=== PATIENT | female | born 1955 | race Caucasian/White ===

== ENCOUNTER → 2019-02-11 | Outpatient (CLI) | payer OTHER, MEDICARE | LOC: MRI 10:13 | DX: M51.16 Intervertebral disc disorders with radiculopathy, lumbar region (principal); M12.88 Other specific arthropathies, not elsewhere classified, other specified site; M25.78 Osteophyte, vertebrae; M48.062 Spinal stenosis, lumbar region with neurogenic claudication; M48.07 Spinal stenosis, lumbosacral region ==

== ENCOUNTER → 2019-03-12 | Outpatient (CLI) | payer OTHER, MEDICARE ==
[~2019-03-12] VITALS: Ht 167.6 cm; Wt 69.4 kg
[~2019-03-12] MED LIST: AMITRIPTYLINE H25 M3 PO; CLONAZEPAM 1 MG1 M1 PO; CYANOCOBAL1000 MCG/1 IM; LOMOTIL 2.5-0.01 TAB PO; PROTONIX40 M4 PO; RECLAST 55 MG/1002 IVPB; REMICADE 1100 MG/VIA; ZANAFLEX4 M2 PO; ZOFRAN8 MG PO; ZOLOFT50 M1 PO
[2019-03-12 10:50] VITALS: BP 122/83
--- NOTE | 2019-03-12 11:23 | NUR ---
Pain Clinic Assessment: 1. History of Osteoarthritis: KNEES HANDS FEETS BACK History of Rheumatoid Arthritis: Not Applicable 2. Height: 5 ft. 6 in. 167.6 cm. Weight: 153.0 lb. oz. 69.400 kg. Patient's BMI: 24.7 3. Vital Signs: BP: 122/83 Pulse: 89 Resp: 16 Temp: 02 Sat: 98 ECG Mon: 4. Pain Intensity: 6-7 5. Fall Risk: Dizziness: Y Needs help standing or walking: N Fallen in the last 3 months: N Fall risk comments: 6. Patient on Blood Thinner: None 7. History of Hypertension: Y 8. Opioid Therapy greater than 6 weeks: N Opiate Contract Signed: 9. Risk Assessment Tool Provided: LOW RISK 04/19 10. Functional Assessment Tool: 11. Recreational Drug Use: Never Drug Type: Tobacco Use: Current Every Day Smoker Tobacco Type: Cigarettes Amount or Packs/day: 1/2 PACK How Many Years: 30 Alcohol Use: No Frequency: Quant:
--- NOTE | 2019-03-13 08:46 | HPC ---
[facility] [address] [place] [address] PAIN MANAGEMENT CONSULTATION Name: NESTORTERESA D [facility] [id number] Admission: 03/12/19 Attend Phys: Luis Thomas DO Discharge: Date of : 55 Report #: [id number] THIS REPORT FOR: //name// CC: Luis Jimenez MD DATE OF SERVICE: 03/12/2019 CHIEF COMPLAINT: Axial back pain. HISTORY OF PRESENT ILLNESS: As you know, the patient is a 64-year-old female with longstanding history of axial back pain began 11/15/2018. The patient reports no injury or trauma that may have led to symptom occurrence. She sought evaluation through her primary care physician who ultimately sent the patient to Rheumatology. The patient was advised that treatment options are limited from her route supervisor. Apparently, there was question about the use of Lyrica and the patient was advised this was not a suitable agent for her symptoms. She was subsequently referred for MRI, which shows some mild changes at the lower lumbar levels and moderate changes in the upper lumbar levels, the changes significant enough that the patient was referred to our clinic to discuss the possibility of treatment options for low back and bilateral upper buttock pain. The patient indicates day pain is continuous. Describes the pain as shooting and sharp. She places current pain score 1/10, daily average 2/10, worst pain has been is 10/10. The patient states that movement exacerbates symptoms, nothing but heat has improved pain. The patient states that she has been on opioids in the past being provided through her lab courier for her Crohn's issues, but she is either being weaned from those medications or has discontinued the medications, as the story has changed during our evaluation today. She has been referred to our service to discuss treatment options for suspected lumbar radiculopathy. PAST MEDICAL HISTORY: 1. Crohn's disease. 2. Hypertension. 3. Chronic liver disease. 4. Hepatitis. 5. Chronic kidney disease with renal cell carcinoma. 6. Emotional problems. 7. Degenerative joint disease. 8. Osteoarthritis. PAST SURGICAL HISTORY: 1. section. 2. Hysterectomy. [facility] [address] [place] [address] PAIN MANAGEMENT CONSULTATION Name: TERESA BAEZ Room #: REG [facility].#: [id number] Admission: 03/12/19 Attend Phys: Luis Thomas DO Discharge: Date of : 55 Report #: [id number] 3. Right wrist fracture open reduction and internal fixation. 4. Bowel resection in 2009. 5. Cryoablation of the left kidney, 02/2019. SOCIAL HISTORY: The patient smokes half pack tobacco per day, has done so for over 30 years. Denies IV or illicit drug use. Denies any chronic alcohol use. She is a retired medical claims payment worker. She has been out of workforce since 2010. She is receiving disability income, but not in litigation in regards to her current pain. She is unaccompanied today. REVIEW OF SYSTEMS: Positive for decreased appetite, fever, night sweats, fatigue and weakness, frequent and recurrent headaches, wearing corrective eyewear, mouth sores, shortness of breath walking or lying flat, frequent and recurrent coughs, loss of appetite, changes in bowel movements, frequent diarrhea interspersed with constipation and painful bowel movements, abdominal pain, nocturia, changes in hair and nail texture, lightheadedness and dizziness, numbness and tingling sensations, memory loss with confusion, nervousness, depression, insomnia, heat and cold intolerance, slow to heal after cuts, bleeding and bruising tendencies. All other review of systems negative per 12-point review of systems other than those listed in history of present illness. Pain impact score 20/70 indicating mild interference of daily activities secondary to pain. ALLERGIES: No known drug allergies. CURRENT MEDICATIONS: 1200 mg calcium twice a day, potassium 20 mEq p.o. daily, Zoloft 50 mg once a day, Lomotil p.r.n., clonazepam 1 mg twice a day, Protonix 40 mg once a day, Zofran 8 mg p.r.n., RECLAST infusion once a year, Remicade infusion every 7 weeks, amitriptyline 25 mg dose 1 tab p.o. at bedtime, pantoprazole 40 mg per day, tizanidine 4 mg p.r.n. IMAGING: MRI lumbar spine obtained 02/11/2019 shows an old superior endplate fracture at L4. No significant wedging. No edema. Chronic process. There is degenerative disease of the disk and the facets at L3-L4, severely narrowing the right aspect of the spinal canal and severely narrowing the right lateral recess. The right aspect of the spinal canal measures 3 mm. The central aspect of the central canal measures 6 mm. Disk osteophyte complexes noted. At L4-L5, there is foraminal disk bulge, facet arthropathy changes causing mild neural foraminal narrowing at L4-L5 level. There is disk osteophyte complex contributing to moderate left L5-S1 neural foraminal stenosis. PQRS: The patient has arthritic changes of the lumbar spine, bilateral knees, bilateral hands and bilateral feet. No rheumatoid arthritis. She is placing pain today at 6-7/10, not a fall risk, has not had a fall in the last [address] [address] PAIN MANAGEMENT CONSULTATION Name: TERESA BAEZ Room #: [facility]#: [id number] Admission: 03/12/19 Attend Phys: Luis Thomas DO Discharge: Date of : 55 Report #: [id number] She is not on blood thinners, but is treated for hypertension. She has been on opioids in the past, but does not report opioid use at this time. Based on our assessment tool, she has a low risk for addiction. She is placing pain impact score of 20/70, mild interference of daily activities secondary to pain. PHYSICAL EXAMINATION: VITAL SIGNS: Blood pressure 122/83, pulse 89, respiratory rate 16 and unlabored. The patient is 98% on room air. Height 5 feet 6 inches tall, weight 153 pounds, BMI calculated 24.7. GENERAL: Well-developed, well-nourished, well-hydrated 64-year-old female, appears her stated age, smells strongly of tobacco smoke, placing current pain score at 6-7/10. HEENT: Normocephalic, atraumatic. Pupils equal, round and reactive. NEUROLOGIC: Speech is fluent. The patient deemed a good historian. LUNGS: The patient is able to talk without difficulty. There is no pursed lips. No respiratory distress. CARDIOVASCULAR: Pulse Ox reveals normal wave pattern. EXTREMITIES: Show no clubbing, no cyanosis, and no edema. MUSCULOSKELETAL: Not completed due patient abruptely arising and leaving the examination room. ASSESSMENT: 1. Chronic low back pain. 2. Central canal stenosis of the lumbar spine. 3. Degeneration of lumbar spine. 4. Degeneration of the disk of the lumbar spine. 5. Lumbosacral spondylosis with radiculopathy. PLAN: 1. The patient has been referred to our service to discuss treatment options for suspected lumbar radiculopathy. We spent the majority of today's appointment discussing the options for treatment. We advised the patient there are 6 ways to treat chronic lumbar radicular symptoms. The following was discussed with the patient for treatment options. We discussed tincture of time allowing the patient to heal on her own with the pain clinic providing no treatment course. We discussed physical therapy, which is the most conservative and recommended treatment option and required by the insurers as an initial treatment course. This could provide good benefit in particularly with this patient's case. We discussed medication management providing suggestions to her prescribing physicians for neuropathic pain medications and consistent low dose opioid medication, as I believe the patient is precluded from having nonsteroidal anti-inflammatories with recent renal conditions. We discussed epidural injections for which the patient was referred to our clinic. We also discussed a spinal cord stimulator therapy and surgical options. We discussed this at length [place] [address] PAIN MANAGEMENT CONSULTATION Name: TERESA BAEZ Room #: REG [facility] Jose#: [id number] Admission: 03/12/19 Attend Phys: Luis Thomas DO Discharge: Date of : 55 Report #: [id number] was offered each choice of treatment and could not make up a decision. We did discuss the possibility of having the patient undergo an epidural injection or undergoing physical therapy. I did advise the patient that insurers do not necessarily pay the 20% residual cost of procedures not covered by Medicare with epidural injections, if not deemed medically necessary, especially if more conservative treatment options have not been exhausted. I did advise the patient that there is no consistency with regards to supplemental insurance coverage with the various carriers and that there is a possibility that the injection may not be fully covered. Though this is a rare occurance, I felt it important to discuss as recent examples of this has occured for some of our patients. Patient states she would not be able to cover the possible 20% cost of the injection if it is not covered by insurance. I advised her that this is a potential risk, as we do not have the capability of determining whether or not the coverage will be appropriate if she has not done more conservative treatment options before. We also offered to send the patient for physical therapy. The patient became somewhat upset stating that she could not handle the payment of 20% not being covered for the epidural injection and has indicated that the entire process today was unhelpful. She chose to leave without undergoing interventional treatments or any other course of therapy. 2. The patient had requested that she be reinitiated on opioid medications. I advised the patient we are not taking on any new opioid medication management patients at this time. She was advised of this when she made her appointment and we discussed this again today at this appointment. 3. We wish to thank Dr. Jimenez for the referral of the patient to our clinic. We will be discharging her back to your services for further evaluation. We recommend that if the patient wishes to move forward, she can look towards surgical options, as she chose not to undergo an epidural injection due to concern [id number] expenses, which we understand, but have no control over. She can look towards more aggressive treatment options if she wishes to do, though we would recommend physical therapy initially. Again, we wish to thank Dr. Jimenez for the opportunity to see the patient in consultation. We will be returning her care. <ELECTRONICALLY SIGNED> By: Luis Thomas DO 03/13/19 [id number] Luis Thomas DO /sukh
== END ==
LOC: PAIN 06:51
DX: M47.27 Other spondylosis with radiculopathy, lumbosacral region (principal); M48.062 Spinal stenosis, lumbar region with neurogenic claudication; M51.16 Intervertebral disc disorders with radiculopathy, lumbar region